=== PATIENT | female | born 1975 | race Caucasian/White ===

== ENCOUNTER 2024-09-27 15:10 | Emergency (ER) | payer SELFPAY ==
[2024-09-27 15:13] VITALS: BP 131/85
[2024-09-27 15:23] LABS: Glucose - Point of Care 505 mg/dl (70-99)
--- NOTE | 2024-09-27 15:34 | EDRN ---
Dr. Yu in room w/ pt at this time.
[2024-09-27 15:43] VITALS: BP 123/74
--- NOTE | 2024-09-27 15:49 | ED.GENMED ---
History of Present Illness
General
Chief Complaint: Blood Sugar Problem
Time Seen by Provider: 09/27/24 15:26
History of Present Illness
History of Present Illness:
Patient is a 49-year-old woman newly diagnosed with diabetes presenting to the emergency department presenting to the emergency department with elevated blood sugar. Patient states that she went to an urgent care few weeks ago and was diagnosed
with diabetes and started on metformin. She is on 500 mg twice a day. She states that she does check her blood sugars and has been elevated. However she does state that she has been trying to adjust her diet. She did live in [place] and was
infected so she is currently living with her friend here. She is also have some polyuria polydipsia. Some nausea but no vomiting. No diarrhea. No fevers chills. No chest pain. She is not on any other medications.
Phy Exam
Physical Exam
Physical Exam:
GENERAL: in no acute distress
HEENT: normocephalic, extraocular movements intact, moist oral mucosa
NECK: normal inspection
RESPIRATORY: no respiratory distress, clear to auscultation bilaterally
CARDIOVASCULAR: regular rate and rhythm
ABDOMEN/: soft, non-distended, non-tender to palpation, no rebound or guarding
EXTREMITIES: non-tender, no edema/swelling
NEUROLOGIC: awake and alert, moves all extremities
SKIN: warm
Course
Orders/Labs/Results
Orders:
Orders
09/27/24 15:23
Test Result ONCE
09/27/24 15:38
Case Management Consult ONCE
Case Management Consult: Discharge Planning
09/27/24 15:54
BHB [B-Hydroxybutyrate] Urgent
Complete Blood Count/With Diff Urgent
Comprehensive Metabolic Panel Urgent
HCG, Serum Qualitative Screen Urgent
Urinalysis Reflex To Culture Urgent
Date Specimen was Collected: 09/27/24
Time Specimen was Collected: 15:20
Urine Microscopic Reflex Cult Urgent
Urine Culture Urgent
CAREY Source: U
Specimen Description:
Date Specimen was Collected: 09/27/24
Time Specimen was Collected: 15:20
09/27/24 16:00
Lactated Ringers [Lr] 1,000 ml IV BOLUS
Ondansetron Orally Disint [Zofran Odt (Orally Disintegrating)] 4 mg PO NOW STA
09/27/24 16:05
Lactic Acid Urgent
Abnormal Lab Results
09/27/24 09/27/24 09/27/24
15:22 15:54 16:05
MCH 31.7 H pg
(27.0-31.0)
Sodium 133 L mmol/L
(135-145)
Chloride 96 L mmol/L
(98-107)
Creatinine 0.4 L mg/dL
(0.6-1.0)
Glucose 535 H* mg/dl
(70-99)
Lactic Acid 2.2 H mmol/L
(0.7-2.0)
AST 65 H U/L
(14-36)
ALT 51 H U/L
(0-35)
Ur Occult Blood Reflex Trace A
(Negative)
Leukocyte Esterase Rfl Trace A
(Negative)
Urine RBC 3-6 A /HPF
(0-2)
Urine WBC (Reflex) 26-30 A /HPF
(0-5)
Urine Bacteria (Reflex) Few A
(Negative)
Urine Glucose 3+ A
(Negative)
POC Glucose 505 H* mg/dl
(70-99)
09/27/24
17:22
MCH
Sodium
Chloride
Creatinine
Glucose
Lactic Acid
AST
ALT
Ur Occult Blood Reflex
Leukocyte Esterase Rfl
Urine RBC
Urine WBC (Reflex)
Urine Bacteria (Reflex)
Urine Glucose
POC Glucose 339 H mg/dl
(70-99)
09/27/24 15:54
09/27/24 15:54
Vital Signs
Initial and Last Documented VS:
Initial Vital Signs
Temp Pulse Resp BP Pulse Ox
98.3 F 108 18 131/85 98
09/27/24 15:13 09/27/24 15:13 09/27/24 15:13 09/27/24 15:13 09/27/24 15:13
Last Documented Vital Signs
Temp Pulse Resp BP Pulse Ox
98.3 F 84 8 113/79 98
09/27/24 15:13 09/27/24 16:00 09/27/24 15:45 09/27/24 16:00 09/27/24 16:00
MDM/Problems Addressed
Differential Diagnosis Includes:
Patient is a 49-year-old woman with history of newly diagnosed diabetes on metformin presenting to the emergency department with elevated blood sugar. Vitals are unremarkable and exam is reassuring. Accu-Chek does show hyperglycemia. Will rule
out DKA. Will check blood work urine. Given the ongoing issues with her insurance and housing situation will discuss with case management. Will also reach out to animal treatment investigator to see if they are available.
*Critical Care Note
Total Time (30-74mins, 75-104mins- exclusive of procedures): Not Applicable
Update Note
Update Note:
Case management discussed with patient and provided her resources including primary care doctor. Blood work shows elevated glucose. She is not in DKA
. Repeat Accu-Chek after liter of fluids was in the 330s. After shared decision making we will increase patient's metformin dose to 850 twice daily. Urine does appear infected and patient is having some dysuria along with polyuria so we will
treat with antibiotics. Patient educated on diet and following up with primary care doctor. Will discharge at this time.
ED Attending Note
-
Portions of this chart may have been created with voice recognition software.� Occasional wrong word or��sound alike� substitutions may have occurred due to the inherent limitations of voice recognition software.
Discharge Plan
Departure
Patient Disposition: Home (Routine Discharge)
Date of Disposition: 09/27/24
Time of Disposition: 17:32
Patient with high blood pressure during this ER visit?: No
Discharge Problem:
Acute hyperglycemia, UTI (urinary tract infection)
Instructions: Type 2 Diabetes (DC), Carb counting for adults with diabetes, Diabetes and diet
Prescriptions:
New
metformin 850 mg tablet
850 mg PO BID Qty: 60 0RF
cephalexin 500 mg capsule
500 mg PO BID 7 Days Qty: 14 0RF
No Action
metformin 500 mg Tablet
500 mg PO BID
venlafaxine [Effexor] 25 mg Tablet
125 mg PO DAILY
Patient Comments:
09.27.2024-no ecw no pharmacy fills
Referrals:
NONE,* [Family Provider] -
Activity Restrictions/Additional Instructions:
You were seen in the Emergency Department today for high blood sugar. While you were here we lowered your blood sugar. We did start you on antibiotics for a urine infection. I did increase your metformin. If you start to develop the GI side
effects as discussed you may transition back to 500 mg. Please call the primary care doctors that you were provided from case management
We would like for you to follow up with your primary care physician for further evaluation. If you experience fever, worsening of your symptoms, or develop any other new or concerning symptoms, please return to the Emergency Department immediately.
Please see the attached sheet for additional information.
Interventions
Interventions:
*Risk Screen - Suicide Last Done: 09/27/24 15:50
*General Assessment Last Done: 09/27/24 15:50
*Neglect/Abuse Screening Last Done: 09/27/24 15:50
ED- Fall Risk Assessment Last Done: 09/27/24 15:50
*ED COVID-19 Vaccine History Last Done: 09/27/24 15:50
ED- Neurological Assessment Last Done: 09/27/24 15:50
Discharge Date and Time
Print Language: SPANISH
[2024-09-27 16:00] VITALS: BP 113/79
[2024-09-27] MEDS: ZOFRAN ODT (ORALLY DISINTEGRATING) 4 MG PO (16:08)
[2024-09-27] MEDS: LR 1000 IV (16:10)
--- NOTE | 2024-09-27 16:14 | CM ---
Addendum entered by Mary Palafox RN 09/27/24 17:07:
CM spoke with patient and explained resources. Patient understands and plans to follow up.
Original Note:
CM met with patient in room. Patient stated that she just [place] and is currently homeless. Patient stated that she was staying with a friend in [place]. Patient is requesting assistance with Medicaid application and finding a PCP.
Patient stated that she has applied for Medicaid and is awaiting determination.
CM advised patient that [facility] will also reach out to her to discuss and assist with Medicaid application.
CM provided patient with discount coupons for medications from [facility] and [facility].
CM further provided patient with information on the [facility] and [employer] self pay options.
[2024-09-27 16:16] LABS: % Basophils 0.7 % (0-2); % Immature Granulocytes 0.3 % (0-0.5); % Lymphocytes 21.5 % (20.5-51.1); % Monocytes 5.5 % (1.7-9.3); Absolute Eosinophils 0.2 10^3/uL (0-0.7); Absolute Lymphocytes 1.3 10^3/uL (1.2-3.4); Absolute Monocytes 0.3 10^3/uL (0.1-0.6); Absolute Neutrophils 4.1 10^3/uL (1.4-6.5); Hematocrit 39.3 % (37.0-47.0); Hemoglobin 13.3 g/dL (12.0-16.0); Mean Corp Hgb Conc. 33.8 g/dL (33.0-37.0); Mean Corpuscular Hgb 31.7 pg (27.0-31.0); Mean Corpuscular Volume 93.6 fL (81.0-99.0); Mean Platelet Volume 9.6 fL (7.4-10.4); Nucleated Red Blood Cells % 0 %; Platelet Count 252 10^3/uL (130-400); Red Cell Dist. Width 12.3 % (11.5-14.5)
[2024-09-27 16:17] LABS: Urine Albumin Negative (Neg - Trace); Urine Bilirubin Negative (Negative); Urine Character Clear (Clear); Urine Color Yellow; Urine Glucose 3+ (Negative); Urine Ketone Negative (Negative); Urine Leukocyte Trace (Negative); Urine Nitrite Negative (Negative); Urine Occult Blood Trace (Negative); Urine Urobilinogen Negative (Neg - 1+)
[2024-09-27 16:28] LABS: Lactic Acid 2.2 mmol/L (0.7-2.0)
[2024-09-27 16:32] LABS: HCG, Serum Qualitative Screen Negative
[2024-09-27 16:35] LABS: Urine Bacteria Few (Negative); Urine White Cell 26-30 /HPF (0-5)
[2024-09-27 16:42] LABS: ALT (SGPT) 51 U/L (0-35); AST (SGOT) 65 U/L (14-36); Albumin 4.3 g/dl (3.5-5.0); Alkaline Phosphatase 83 U/L (38-126); Blood Urea Nitrogen 13 mg/dl (7-17); Calcium 9.4 mg/dl (8.4-10.2); Carbon Dioxide 24 mmol/L (22-30); Chloride 96 mmol/L (98-107); Glucose 535 mg/dl (70-99); Potassium 4.5 mmol/L (3.5-5.1); Sodium 133 mmol/L (135-145); Total Bilirubin 0.7 mg/dl (0.2-1.3); eGFR > 60.00
[2024-09-27 17:01] LABS: B-Hydroxybutyrate 0.24 mmol/L (0.02-0.27)
[2024-09-27 17:24] LABS: Glucose - Point of Care 339 mg/dl (70-99)
--- NOTE | 2024-09-27 17:25 | EDRN ---
Dr. Yu in to see pt.
[2024-09-27 17:30] VITALS: BP 120/83
== END 2024-09-27 17:45 | disposition home or self-care (01) ==
LOC: EMR 15:10
PROVIDERS: Student in an Organized Health Care Education/Training Program; EMERGENCY PHYSICIAN Student in an Organized Health Care Education/Training Program
DX: E11.65 Type 2 diabetes mellitus with hyperglycemia (principal); N39.0 Urinary tract infection, site not specified; R11.0 Nausea
CPT/HCPCS: 99284; 96360; 80053; 81003; 81015; 82010; 82962; 83605; 84703; 85025; 87077; 87086; 87147